=== PATIENT | female | born 1985 | race Caucasian/White ===

== ENCOUNTER 2016-06-27 01:57 | Emergency (ER) | payer SELFPAY ==
[~2016-06-27] VITALS: Ht 157.5 cm; Wt 99.0 kg
[~2016-06-27 01:57] MED LIST: BACTDS PO; CEPH-443 PO; CLIN-73 PO; FLORANEX PO; HYDR-3498 PO; HYDR-762 PO; IBUP800T25 PO; INSU100I13 SC; METF500T4 PO; METH500T PO; NAPR-260 PO
[2016-06-27 02:15] VITALS: Ht 157.5 cm; Wt 99.0 kg
[2016-06-27] MEDS ORDERED: SOD CHLORIDE 0.9% 1,000 ML IV STA (06:08)
[2016-06-27 06:25] LABS: MODE ROOM AIR; MetHgb Venous 0.3 %; Sample Type Blood venous; Venous COHb 0.4 %; Venous Fraction OxyHgb 68.5 %; Venous Total Hemglobin 14.7 g/dl
--- NOTE | 2016-06-27 06:25 | ERA ---
ER Documentation Chief Complaint Date/Time DATE: 06/27/16 TIME: 06:23 Chief Complaint Hyperglycemia with hospital referral HPI 31-year-old female who describes a history of insulin-dependent diabetes but off of insulin for greater than 1 year secondary to insurance issues. The patient states that she has had several weeks of polydipsia polyuria polyphagia with associated gradual onset headache. She went to an urgent care with a glucose in the 400s who sent her to the emergency room. She denies any fevers, chills, chest pain, no shortness of breath no dysuria. ROS All systems reviewed and are negative except as per history of present illness. Medications Home Meds Active Scripts Syring-Needl,Disp,Insul,0.3 ml (Insulin Syringe) 1 Each Disp.syrin, 1 BOX MC, #1 Prov:KANA EMERY MD 06/27/16 Blood-Glucose Meter (Blood Glucose Monitor) 1 Each Kit, 1 EACH MC, #1 Prov:KANA EMERY MD 06/27/16 Blood Glucose Strips-Dispmeter ([employer] Blood Glucose System) 1 Each Kit, 1 EACH MC, #1 Prov:KANA EMERY MD 06/27/16 Insulin Lispro (Humalog) 100 Unit/1 Ml Cartridge, 6 UNIT SQ TID for with meals for 30 Days Prov:KANA EMERY MD 06/27/16 Insulin NPH Human Isophane (Humulin N) 100 Unit/1 Ml Vial, 14 UNIT SQ BID for 30 Days, VIAL Prov:KANA EMERY MD 06/27/16 Metformin* (Glucophage*) 500 Mg Tab, 500 MG PO BID, #20 TAB Prov:JULIOCESAR ALVARENGA NP 01/18/16 Sulfamethoxazole-Trimethoprim* (Bactrim* DS) 800-160 Mg Tab, 1 TAB PO BID for 7 Days, TAB Prov:JULIOCESAR ALVARENGA OTC CLERK 01/18/16 Cephalexin* (Keflex*) 500 Mg Capsule, 500 MG PO QID for 7 Days, CAP Prov:JULIOCESAR ALVARENGA NP 01/18/16 Ibuprofen* (Motrin*) 800 Mg Tab, 800 MG PO Q6H Y for PAIN AND OR ELEVATED TEMP, #30 TAB Prov:JULIOCESAR ALVARENGA NP 01/18/16 Ibuprofen* (Motrin*) 800 Mg Tab, 800 MG PO Q6, #30 TAB take with food Prov:MARKIE HERNANDEZ PA-C 12/19/15 Cephalexin* (Keflex*) 500 Mg Capsule, 500 MG PO QID for 7 Days, CAP Prov:MARKIE HERNANDEZ PA-C 12/19/15 Sulfamethoxazole-Trimethoprim* (Bactrim* DS) 800-160 Mg Tab, 1 TAB PO BID for 7 Days, TAB Prov:MARKIE HERNANDEZ PA-C 12/19/15 Methocarbamol* (Robaxin*) 500 Mg Tab, 500 MG PO Q8, #14 TAB Prov:OLYMORTEZA DO 07/12/15 Hydrocodone Bit-Acetaminophen* ([place]*) 5-325 Mg Tab, 1 TAB PO Q6 Y for PAIN, # 10 TAB Prov:MORTEZA ALDRIDGE DO 07/12/15 Naproxen* (Naprosyn*) 500 Mg Tablet, 500 MG PO BID Y for PAIN AND/OR INFLAMMATION, #30 TAB Prov:MORTEZA ALDRIDGE DO 07/12/15 Clindamycin Hcl* (Clindamycin Hcl*) 300 Mg Capsule, 300 MG PO TID for 10 Days, CAP Prov:MORTEZA ALDRIDGE DO 07/12/15 Sulfamethoxazole-Trimethoprim* (Bactrim* DS) 800-160 Mg Tab, 1 TAB PO BID for 7 Days, TAB Prov:ANGEL SAMANO PA-C 07/10/15 Cephalexin* (Keflex*) 500 Mg Capsule, 500 MG PO QID for 7 Days, CAP Prov:ANGEL SAMANO PA-C 07/10/15 Hydrocodone Bit-Acetaminophen* ([place]*) 5-325 Mg Tab, 1 TAB PO Q6 Y for PAIN, # 14 TAB Prov:TRUMAN HERZOG MD 05/17/15 Cephalexin* (Keflex*) 500 Mg Capsule, 500 MG PO QID for 10 Days, CAP Prov:TRUMAN HERZOG MD 05/17/15 Sulfamethoxazole-Trimethoprim* (Bactrim* DS) 800-160 Mg Tab, 1 TAB PO BID for 10 Days, TAB Prov:TRUMAN HERZOG MD 05/17/15 Insuln Asp Prt/Insulin Aspart* (Novolog Mix 70-30 Flexpen*) 100 Unit/1 Ml Inj, 16 UNIT SC AC BREAKFAST DINNER for 30 Days Prov:OLEKSANDR CHRISTIANSEN 04/05/15 Hydrocodone Bit-Acetaminophen* ([place]*) 10-325 Mg Tablet, 1 TAB PO Q4H Y for PAIN, #30 TAB Prov:IMANI CHRISTIANSENNELL 04/05/15 Lactobacillus Acidoph/Bulgaricus* (Floranex*) 1 Tab Chew, 1 TAB PO TID for 14 Days Prov:IMANI CHRISTIANSENNELL 04/05/15 Clindamycin Hcl* (Clindamycin Hcl*) 300 Mg Capsule, 300 MG PO Q8 for 14 Days, CAP Prov:OLEKSANDR CHRISTIANSEN 04/05/15 Allergies Allergies: Coded Allergies: No Known Allergy (Unverified , 04/03/15) PMhx/Soc History of Surgery: Yes (3x ) Anesthesia Reaction: No Hx Neurological Disorder: No Hx Respiratory Disorders: No Hx Cardiac Disorders: No Hx Psychiatric Problems: No Hx Miscellaneous Medical Probl: Yes (dm on insulin) Hx Alcohol Use: No Hx Substance Use: No Hx Tobacco Use: No Smoking Status: Never smoker FmHx Family History: diabetes Physical Exam Vitals Vital Signs Date Time Temp Pulse Resp B/P Pulse Ox O2 Delivery O2 Flow Rate FiO2 06/27/16 02:15 97.3 89 20 123/73 97 Physical Exam General: Well developed, well nourished, no acute distress no odor of ketones Head: Normocephalic, atraumatic. Eyes: Pupils equally reactive, EOM intact ENT: Moist mucous membranes Neck: Supple, no lymphadenopathy Respiratory: Lungs clear bilaterally, no distress Cardiovascular: RRR, no murmurs, rubs, or gallops Abdominal: Soft, non-tender, non-distended, no peritoneal signs : Deferred MSK: No edema, no unilateral swelling, 5/5 strength Neurologic: Alert and oriented, moving all extremities, normal speech, no focal weakness, no cerebellar signs Skin: No rash Psych: Normal mood Result Diagram: 06/27/16 0612 06/27/16 0612 Results 24 hrs Laboratory Tests Test 06/27/16 02:59 06/27/16 05:22 06/27/16 06:08 06/27/16 06:12 Bedside Glucose 468mg/dL Urine Bilirubin NEGATIVE Urine Clarity CLEAR Urine Color LT. YELLOW Urine Glucose >=1000% Urine Hemoglobin NEGATIVE Urine Ketones 15 Urine Leukocyte Esterase NEGATIVE Urine Nitrite NEGATIVE Urine Specific [place] 1.010 Urine Total Protein NEGATIVE Urine Urobilinogen 0.2 E.U./dL Urine pH 6.0 David Test N/A Arterial Blood Date Drawn 06/27/2016 6:15:15 AM Arterial Blood Gas Puncture Site LB Blood Gas Actual Respiration Rate 20 Blood Gas Critical Value Read Back Bebe JULIAN. Blood Gas Modality ROOM AIR Blood Gas Notified Time 06/27/2016 6:24:39 AM Blood Gas Notified Whom BL Blood Gas Specimen Source Blood venous Blood Gas Temperature 37.0C Carboxyhemoglobin 0.4% FiO2 21.0% Venous Blood Base Excess -3.0mmol/L Venous Blood HCO3 23.0mmol/L Venous Blood Methemoglobin 0.3% Venous Blood Oxygen Saturation 69.0mmHG Venous Blood Oxyhemoglobin 68.5% Venous Blood Total Hemoglobin 14.7g/dl Venous Blood pCO2 (Temp Corrected) 44.8mmHG Venous Blood pH 7.329 Venous Blood pO2 (Temp Corrected) 38.6mmHG Anion Gap 16 Basophils # 0.010^3/ul Basophils % 0.3% Blood Urea Nitrogen 11mg/dl Calcium Level 9.5mg/dl Carbon Dioxide Level 29mmol/L Chloride Level 99mmol/L Creatinine 0.39mg/dl Eosinophils # 0.110^3/ul Eosinophils % 1.1% Glucose Level 359mg/dl Hematocrit 40.6% Hemoglobin 13.8g/dl Lymphocytes # 2.610^3/ul Lymphocytes % 27.9% Mean Corpuscular Hemoglobin 29.2pg Mean Corpuscular Hemoglobin Concent 34.0g/dl Mean Corpuscular Volume 85.8fl Mean Platelet Volume 7.8fl Monocytes # 0.510^3/ul Monocytes % 5.0% Neutrophils # 6.110^3/ul Neutrophils % 65.7% Nucleated Red Blood Cells # 0.010^3/ul Nucleated Red Blood Cells % 0.0/100WBC Platelet Count 16654^3/UL Potassium Level 4.1mmol/L Red Blood Count 4.7310^6/ul Red Cell Distribution Width 12.7% Sodium Level 140mmol/L White Blood Count 9.310^3/ul Test 06/27/16 06:14 06/27/16 07:27 Bedside Glucose 338mg/dL 305mg/dL Current Medications Medications (Trade) Dose Ordered Sig/Nadine Route PRN Reason Start Time Stop Time Status Last Admin Dose Admin Sodium Chloride (NS) 1,000 ml @ 1,000 mls/hr Q1H STAT IV 06/27/16 06:08 06/27/16 07:07 DC 06/27/16 06:43 Insulin Detemir (Levemir) 15 unit ONCE ONCE SC 06/27/16 08:00 06/27/16 08:01 DC 06/27/16 07:59 Miscellaneous Information 1 ea NOTE XX 06/27/16 08:00 Glucose (Glutose) 15 gm Q15M PRN PO DECREASED GLUCOSE 06/27/16 08:00 Glucose (Glutose) 22.5 gm Q15M PRN PO DECREASED GLUCOSE 06/27/16 08:00 Dextrose (D50w Syringe) 25 ml Q15M PRN IV DECREASED GLUCOSE 06/27/16 08:00 Dextrose (D50w Syringe) 50 ml Q15M PRN IV DECREASED GLUCOSE 06/27/16 08:00 Glucagon (Glucagen) 1 mg Q15M PRN IM DECREASED GLUCOSE 06/27/16 08:00 Glucose (Glutose) 15 gm Q15M PRN BUCCAL DECREASED GLUCOSE 06/27/16 08:00 Procedures/MDM LAB INTERPRETATION: Ketonuria, normal bicarb, normal pH MEDICAL DECISION MAKING: The patient presents with hyperglycemia in the setting of medication noncompliance for greater than 1 year. She states that she was diagnosed with diabetes at a young age and states that she was only taking insulin however it seems unlikely that the patient is solely a insulin-dependent diabetic or type I diabetic given that she is otherwise well-appearing with greater than 1 year of no insulin. This is very possibly type 2 diabetes diagnosed at a young age. However, the patient will require laboratory testing to rule out diabetic ketoacidosis. She unfortunately cannot tell me the name of her insulin or her insulin regimen. She does not have a primary care physician. ER COURSE: The patient has hyperglycemia without evidence of diabetic ketoacidosis. She does have some small ketones in her urine and will benefit from insulin. Unfortunately the patient does not know her insulin regimen. I was able to speak to [address] of our hab[address]itation assistant Dr. García who was kind enough to discuss the case with me. She recommended providing the patient with a single dose of Levemir 15 units subcutaneous in the emergency department. She then recommended an outpatient insulin regimen. Based on the patient's presentation and weight she recommended a 24 hour total of 0.5 U/kg. She recommended 60% of daily dose of Humulin N divided twice daily and then 40% of the total dose in the form of Humalog or Humulin R 3 times daily with meals. The patient was informed of this dosing regimen. She was advised to check her glucose regularly and has been provided prescriptions for equipment. The patient was advised to stop insulin regimen if she becomes hypoglycemic, confused or feeling faint. The patient was strongly advised to follow-up with a primary care physician as soon as possible and outpatient referral to [facility] endocrinology and primary care clinics was provided. At this time the patient does not require inpatient hospitalization. I kept the patient and/or family informed of laboratory and diagnostic imaging results throughout the emergency room course. DISPOSITION PLAN: We discussed follow up with the patient's primary care doctor within 24 to 48 hours as needed. We also discussed return to the emergency room for worsening symptoms or worsening condition. Discharge Medications: Humulin N 14 units twice daily Humalog or Humulin R 6 units 3 times daily with meals Departure Diagnosis: Primary Impression: Hyperglycemia Additional Impression: Diabetes mellitus Qualified Code: E13.9 - Diabetes mellitus of other type without complication, unspecified residential insulin use status Condition: KANA Waddell MD Jun 27, 2016 06:25
[2016-06-27 07:01] LABS: BASOPHILS % 0.3 % (0.0-2.0); EOSINOPHILS # 0.1 10^3/ul (0.0-0.5); EOSINOPHILS % 1.1 % (0.0-7.0); HEMATOCRIT 40.6 % (37.0-47.0); HEMOGLOBIN 13.8 g/dl (12.0-16.0); LYMPHOCYTES # 2.6 10^3/ul (0.8-2.9); LYMPHOCYTES % 27.9 % (15.0-51.0); MEAN CORPUSCULAR HEMOGLOBIN 29.2 pg (29.0-33.0); MEAN CORPUSCULAR VOLUME 85.8 fl (82.0-101.0); MEAN PLATELET VOLUME 7.8 fl (7.4-10.4); MONOCYTE # 0.5 10^3/ul (0.3-0.9); NEUTROPHIL # 6.1 10^3/ul (1.6-7.5); NEUTROPHILS % 65.7 % (39.0-77.0); PLATELET COUNT 322 10^3/UL (140-440); POTASSIUM 4.1 mmol/L (3.5-5.1); RED BLOOD COUNT 4.73 10^6/ul (4.20-5.40); RED CELL DISTRIBUTION WIDTH 12.7 % (11.5-14.5); UNCORRECTED WBC 9.3 10^3/ul (4.8-10.8); WHITE BLOOD COUNT 9.3 10^3/ul (4.8-10.8)
[2016-06-27 07:01] LABS: ADD UMIC NO; URINE BILIRUBIN (Dip) NEGATIVE (NEGATIVE); URINE BLOOD (Dip) NEGATIVE (NEGATIVE); URINE COLOR LT. YELLOW (YELLOW); URINE GLUCOSE (Dip) >=1000 % (NEGATIVE); URINE KETONES (Dip) 15 (NEGATIVE); URINE LEUKOCYTE ESTERASE (Dip) NEGATIVE (NEGATIVE); URINE NITRITE (Dip) NEGATIVE (NEGATIVE); URINE TOTAL PROTEIN (Dip) NEGATIVE (NEGATIVE); URINE UROBILINOGEN (Dip) 0.2 E.U./dL (0.1-1.0)
[2016-06-27 07:03] LABS: CREATININE 0.39 mg/dl (0.44-1.00)
[2016-06-27 07:04] LABS: CALCIUM 9.5 mg/dl (8.4-10.2)
[2016-06-27 07:24] LABS: CONDITION 1
[2016-06-27] MEDS ORDERED: INSU100C SQ (07:46)
[2016-06-27] MEDS ORDERED: NPH,100V SQ (07:46)
[2016-06-27] MEDS ORDERED: [UNRECOGNIZED DRUG - CODE] MC (07:49)
[2016-06-27] MEDS ORDERED: BLOO-175 MC (07:49)
[2016-06-27] MEDS ORDERED: BLOO-432 MC (07:49)
[2016-06-27] MEDS ORDERED: DEXTROSE 50% 50 ML SYRINGE IV PRN ×2 (08:00)
[2016-06-27] MEDS ORDERED: GLUCOSE GEL 15 GRAM TUBE BUCCAL PRN (08:00)
[2016-06-27] MEDS ORDERED: GLUCOSE GEL 15 GRAM TUBE PO PRN ×2 (08:00)
[2016-06-27] MEDS ORDERED: GLUCAGON 1 MG INJ IM PRN (08:00)
[2016-06-27] MEDS ORDERED: INSULIN DETEMIR [LEVEMIR] 3ML CART SC ONE (08:00)
[2016-06-27 08:08] VITALS: BP 110/62; PULSE 83; RESP 17; TEMP 97.7
== END 2016-06-27 08:26 | disposition home or self-care (01) ==
LOC: E/R 01:57
DX: E11.65 Type 2 diabetes mellitus with hyperglycemia (principal); Z79.4 Long term (current) use of insulin; Z79.84 Long term (current) use of oral hypoglycemic drugs
CPT/HCPCS: 36415; 80048; 81003; 82803; 82962; 85025; 96372; 99284; J1815; J7030

== ENCOUNTER 2017-02-02 19:57 | Emergency (ER) | payer MEDICAID ==
[~2017-02-02] VITALS: Ht 160 cm; Wt 97.5 kg
[~2017-02-02 19:57] MED LIST changes: +BLOO-175 MC; +BLOO-432 MC; +INSU100C SQ; +NPH,100V SQ; +[UNRECOGNIZED DRUG - CODE] MC
[2017-02-02 20:22] VITALS: Ht 160 cm; Wt 97.5 kg
[2017-02-02] MEDS ORDERED: SOD CHLORIDE 0.9% 2,000 ML IV STA (23:00)
[2017-02-02 23:22] LABS: BASOPHILS % 0.2 % (0.0-2.0); EOSINOPHILS # 0.1 10^3/ul (0.0-0.5); EOSINOPHILS % 1.2 % (0.0-7.0); HEMATOCRIT 38.5 % (37.0-47.0); HEMOGLOBIN 13.1 g/dl (12.0-16.0); LYMPHOCYTES # 2.8 10^3/ul (0.8-2.9); LYMPHOCYTES % 31.2 % (15.0-51.0); MEAN CORPUSCULAR HEMOGLOBIN 29.5 pg (29.0-33.0); MEAN CORPUSCULAR VOLUME 86.7 fl (82.0-101.0); MEAN PLATELET VOLUME 8.9 fl (7.4-10.4); MONOCYTE # 0.5 10^3/ul (0.3-0.9); MONOCYTES % 5.3 % (0.0-11.0); NEUTROPHIL # 5.6 10^3/ul (1.6-7.5); NEUTROPHILS % 61.7 % (39.0-77.0); PLATELET COUNT 350 10^3/UL (140-415); RED BLOOD COUNT 4.44 10^6/ul (4.20-5.40); RED CELL DISTRIBUTION WIDTH 12.5 % (11.5-14.5); WHITE BLOOD COUNT 9.1 10^3/ul (4.8-10.8)
[2017-02-02 23:27] LABS: ADD UMIC NO; UR ASCORBIC ACID NEGATIVE (NEGATIVE); UR BILIRUBIN (Dip) NEGATIVE (NEGATIVE); UR BLOOD (Dip) NEGATIVE (NEGATIVE); UR CLARITY CLEAR (CLEAR); UR COLOR STRAW (YELLOW); UR GLUCOSE (Dip) 3+ mg/dL (NEGATIVE); UR KETONES (Dip) NEGATIVE (NEGATIVE); UR LEUKOCYTE ESTERASE (Dip) NEGATIVE Leu/ul (NEGATIVE); UR NITRITE (Dip) NEGATIVE (NEGATIVE); UR SPECIFIC GRAVITY (Dip) 1.032 (1.003-1.030); UR TOTAL PROTEIN (Dip) NEGATIVE (NEGATIVE); UR UROBILINOGEN (Dip) NEGATIVE (NEGATIVE)
[2017-02-02 23:43] LABS: ALBUMIN 3.6 g/dl (3.3-4.9); ALBUMIN/GLOBULIN RATIO 0.97; BILIRUBIN,INDIRECT 0.1 mg/dl (0-1.1); BILIRUBIN,TOTAL 0.1 mg/dl (0.2-1.3); CALCIUM 9.2 mg/dl (8.4-10.2); CREATININE 0.51 mg/dl (0.44-1.00); POTASSIUM 4.3 mmol/L (3.5-5.1); TOTAL PROTEIN 7.3 g/dl (6.1-8.1)
[2017-02-03] MEDS ORDERED: INSULIN LISPRO 100 UNIT/ML VIAL SC STA (00:06)
[2017-02-03] MEDS ORDERED: NPH,100V SQ (00:10)
[2017-02-03] MEDS ORDERED: INSU100V3 IJ (00:10)
--- NOTE | 2017-02-03 00:13 | RADRPT ---
PROCEDURE: US Pelvis. CLINICAL INDICATION: Pelvic pain following a fall. Positive TECHNIQUE: Multiple sonographic images of the pelvis were obtained utilizing a transabdominal and endovaginal technique. The images were reviewed on a PACS workstation. COMPARISON: None available FINDINGS: Uterus: Normal in size, contour and echogenicity with no evidence for myometrial masses. Cervix: No abnormalities of significance are seen. Endometrium: Anechoic structure possibly a gestational sac measures 3.8 mm. No yolk sac or po le is demonstrated. Right ovary / adnexa: Normal in size estimated at 2.9 x 1.9 x 1.9 cm. No evidence for masses, norm al blood flow on Doppler interrogation. Left ovary/adnexa: Normal in size estimated at 3.1 x 2.1 x 1.9 cm. No evidence for solid masses, no rmal blood flow on Doppler interrogation. Cul-de-sac: No evidence of free fluid. RPTAT:HJJR IMPRESSION: 1. Tiny anechoic structure within the endometrial cavity possibly a gestational sac which correlates with an age of 4 weeks 6 days. As viability is uncertain, correlation with serial serum beta HCG levels and follow-up pelvic ultras ound is recommended. 2. Otherwise unremarkable examination with sonographically normal myometrium, ovaries and adnexa. Physician Julian Date Time Electronically viewed and signed by Physician Julian on 02/03/2017 00:13 /
--- NOTE | 2017-02-03 00:14 | ERD ---
ER Documentation Chief Complaint Date/Time DATE: 02/03/17 TIME: 00:11 Chief Complaint back pain, fell yesterday, no cramps, no bleeding, pt preg 4 weeks HPI This 31-year-old female slipped and fell backwards Onto her lower back or buttocks yesterday. She has low back pain and lower abdominal pain which started today. History is significant for approximately 6 weeks by dates. Her primary doctor identified a 4 week by ultrasound this week. OB appointment is pending. History is also significant for insulin dependent diabetes and she has been out of her insulin for 2 weeks. She denies any vomiting, abdominal pain, chest pain or headache. She denies any vaginal bleeding. She is not checking her blood sugar. ROS All systems reviewed and are negative except as per history of present illness. Medications Home Meds Active Scripts Insulin Regular, Human (Humulin R) 100 Unit/1 Ml Vial, 20 UNIT IJ BID for 30 Days, VIAL Dose as directed. 20 units every morning and 15 units nightly. Prov:TRUMAN HERZOG MD 02/03/17 Insulin NPH Human Isophane (Humulin N) 100 Unit/1 Ml Vial, 10 UNIT SQ BID for 30 Days, VIAL Dose as directed 20 units every morning and 5 units nightly Prov:TRUMAN HERZOG MD 02/03/17 Syring-Needl,Disp,Insul,0.3 ml (Insulin Syringe) 1 Each Disp.syrin, 1 BOX , #1 Prov:KANA EMERY MD 06/27/16 Blood-Glucose Meter (Blood Glucose Monitor) 1 Each Kit, 1 EACH , #1 Prov:KANA EMERY MD 06/27/16 Blood Glucose Strips-Dispmeter ([employer] Blood Glucose System) 1 Each Kit, 1 EACH , #1 Prov:KANA EMERY MD 06/27/16 Insulin Lispro (Humalog) 100 Unit/1 Ml Cartridge, 6 UNIT SQ TID for with meals for 30 Days Prov:KANA EMERY MD 06/27/16 Insulin NPH Human Isophane (Humulin N) 100 Unit/1 Ml Vial, 14 UNIT SQ BID for 30 Days, VIAL Prov:KANA EMERY MD 2/19/17 Metformin* (Glucophage*) 500 Mg Tab, 500 MG PO BID, #20 TAB Prov:JULIOCESAR ALVARENGA. ATOMIC SPECTROSCOPIST 01/18/16 Sulfamethoxazole-Trimethoprim* (Bactrim* DS) 800-160 Mg Tab, 1 TAB PO BID for 7 Days, TAB Prov:JULIOCESAR ALVARENGA. ATOMIC SPECTROSCOPIST 01/18/16 Cephalexin* (Keflex*) 500 Mg Capsule, 500 MG PO QID for 7 Days, CAP Prov:JULIOCESAR ALVARENGA. ATOMIC SPECTROSCOPIST 01/18/16 Ibuprofen* (Motrin*) 800 Mg Tab, 800 MG PO Q6H Y for PAIN AND OR ELEVATED TEMP, #30 TAB Prov:JULIOCESAR ALVARENGA. ATOMIC SPECTROSCOPIST 01/18/16 Ibuprofen* (Motrin*) 800 Mg Tab, 800 MG PO Q6, #30 TAB take with food Prov:MARKIE HERNANDEZ PA-C 12/19/15 Cephalexin* (Keflex*) 500 Mg Capsule, 500 MG PO QID for 7 Days, CAP Prov:MARKIE HERNANDEZ PA-C 12/19/15 Sulfamethoxazole-Trimethoprim* (Bactrim* DS) 800-160 Mg Tab, 1 TAB PO BID for 7 Days, TAB Prov:MARKIE HERNANDEZ-C 12/19/15 Methocarbamol* (Robaxin*) 500 Mg Tab, 500 MG PO Q8, #14 TAB Prov:MORTEZA ALDRIDGE DO 07/12/15 Hydrocodone Bit-Acetaminophen* ([place]*) 5-325 Mg Tab, 1 TAB PO Q6 Y for PAIN, # 10 TAB Prov:MORTEZA ALDRIDGE DO 07/12/15 Naproxen* (Naprosyn*) 500 Mg Tablet, 500 MG PO BID Y for PAIN AND/OR INFLAMMATION, #30 TAB Prov:MORTEZA ALDRIDGE DO 07/12/15 Clindamycin Hcl* (Clindamycin Hcl*) 300 Mg Capsule, 300 MG PO TID for 10 Days, CAP Prov:MORTEZA ALDRIDGE DO 07/12/15 Sulfamethoxazole-Trimethoprim* (Bactrim* DS) 800-160 Mg Tab, 1 TAB PO BID for 7 Days, TAB Prov:ANGEL SAMANO PA-C 07/10/15 Cephalexin* (Keflex*) 500 Mg Capsule, 500 MG PO QID for 7 Days, CAP Prov:ANGEL SAMANO PA-C 07/10/15 Hydrocodone Bit-Acetaminophen* ([place]*) 5-325 Mg Tab, 1 TAB PO Q6 Y for PAIN, # 14 TAB Prov:TRUMAN HERZOG MD 05/17/15 Cephalexin* (Keflex*) 500 Mg Capsule, 500 MG PO QID for 10 Days, CAP Prov:TRUMAN HERZOG MD 05/17/15 Sulfamethoxazole-Trimethoprim* (Bactrim* DS) 800-160 Mg Tab, 1 TAB PO BID for 10 Days, TAB Prov:TRUMAN HERZOG MD 05/17/15 Insuln Asp Prt/Insulin Aspart* (Novolog Mix 70-30 Flexpen*) 100 Unit/1 Ml Inj, 16 UNIT SC AC BREAKFAST DINNER for 30 Days Prov:OLEKSANDR CHRISTIANSEN 04/05/15 Hydrocodone Bit-Acetaminophen* ([place]*) 10-325 Mg Tablet, 1 TAB PO Q4H Y for PAIN, #30 TAB Prov:OLEKSANDR CHRISTIANSEN 04/05/15 Lactobacillus Acidoph/Bulgaricus* (Floranex*) 1 Tab Chew, 1 TAB PO TID for 14 Days Prov:OLEKSANDR CHRISTIANSEN 04/05/15 Clindamycin Hcl* (Clindamycin Hcl*) 300 Mg Capsule, 300 MG PO Q8 for 14 Days, CAP Prov:OLEKSANDR CHRISTIANSEN 04/05/15 Allergies Allergies: Coded Allergies: No Known Allergy (Unverified , 04/03/15) PMhx/Soc History of Surgery: Yes (3x ) Anesthesia Reaction: No Hx Neurological Disorder: No Hx Respiratory Disorders: No Hx Cardiac Disorders: No Hx Psychiatric Problems: No Hx Miscellaneous Medical Probl: Yes (dm on insulin) Hx Alcohol Use: No Hx Substance Use: No Hx Tobacco Use: No Smoking Status: Never smoker Physical Exam Vitals Vital Signs Date Time Temp Pulse Resp B/P Pulse Ox O2 Delivery O2 Flow Rate FiO2 02/02/17 20:22 99.2 100 20 129/72 99 Physical Exam Const: [] Letter, [id number], obese. Head: Atraumatic Eyes: Normal Conjunctiva ENT: Normal External Ears, Nose and Mouth. Neck: Full range of motion..~ No meningismus. Resp: Clear to auscultation bilaterally Cardio: Regular rate and rhythm, no murmurs Abd: Soft, non tender, non distended. Normal bowel sounds Skin: No petechiae or rashes Back: No midline or flank tenderness Ext: No cyanosis, or edema Neur: Awake and alert Psych: Normal Mood and Affect Result Diagram: 02/02/170 02/02/170 Results 24 hrs Laboratory Tests Test 02/02/17 22:58 02/02/17 23:10 Bedside Glucose 400mg/dL White Blood Count 9.110^3/ul Red Blood Count 4.4410^6/ul Hemoglobin 13.1g/dl Hematocrit 38.5% Mean Corpuscular Volume 86.7fl Mean Corpuscular Hemoglobin 29.5pg Mean Corpuscular Hemoglobin Concent 34.0g/dl Red Cell Distribution Width 12.5% Platelet Count 44856^3/UL Mean Platelet Volume 8.9fl Neutrophils % 61.7% Lymphocytes % 31.2% Monocytes % 5.3% Eosinophils % 1.2% Basophils % 0.2% Nucleated Red Blood Cells % 0.0/100WBC Neutrophils # 5.610^3/ul Lymphocytes # 2.810^3/ul Monocytes # 0.510^3/ul Eosinophils # 0.110^3/ul Basophils # 0.010^3/ul Nucleated Red Blood Cells # 0.010^3/ul Urine Color STRAW Urine Clarity CLEAR Urine pH 6.0 Urine Specific [place] 1.032 Urine Ketones NEGATIVEmg/dL Urine Nitrite NEGATIVEmg/dL Urine Bilirubin NEGATIVEmg/dL Urine Urobilinogen NEGATIVEmg/dL Urine Leukocyte Esterase NEGATIVELeu/ul Urine Hemoglobin NEGATIVEmg/dL Urine Glucose 3+mg/dL Urine Total Protein NEGATIVEmg/dl Sodium Level 131mmol/L Potassium Level 4.3mmol/L Chloride Level 100mmol/L Carbon Dioxide Level 25mmol/L Anion Gap 10 Blood Urea Nitrogen 11mg/dl Creatinine 0.51mg/dl Glucose Level 485mg/dl Calcium Level 9.2mg/dl Total Bilirubin 0.1mg/dl Direct Bilirubin 0.00mg/dl Indirect Bilirubin 0.1mg/dl Aspartate Amino Transf (AST/SGOT) 15IU/L Alanine Aminotransferase (ALT/SGPT) 28IU/L Alkaline Phosphatase 120IU/L Total Protein 7.3g/dl Albumin 3.6g/dl Globulin 3.70g/dl Albumin/Globulin Ratio 0.97 Lipase 161U/L Current Medications Medications (Trade) Dose Ordered Sig/Nadine Route PRN Reason Start Time Stop Time Status Last Admin Dose Admin Sodium Chloride (NS) 2,000 ml @ 1,000 mls/hr Q2H STAT IV 02/02/17 23:00 02/03/17 00:59 02/02/17 23:14 Insulin Human Lispro (Humalog) 10 unit ONCE STAT SC 02/03/17 00:06 02/03/17 00:07 DC Procedures/MDM Accu-Chek was 400. EDC is normal. CMP shows sodium 131 and glucose of 45. Patient was given 2 L normal saline and IV and Humalog 10 units subcutaneously. Pelvic ultrasound shows a 4 week gestational sac without identifiable adnexal masses and no visible yolk sac or pole. Quantitative hCG is pending and signed out to nurse practitioner cuisia. Patient shows no signs of acute abdomen or abdominal pain. She has no fever or active vomiting. Urine shows no ketones, only glucose. Patient does not have signs or symptoms of ketoacidosis. Patient will be signed out pending normalization of blood sugar. Aftercare plan is to be resumed on patient's insulin and OB follow-up and close blood sugar monitoring. Quantitative hCG pending. Patient shows gestational sac of early . Recommending 2 day recheck FOR quantitative hCG rechecked and viability of as well. Differential includes ectopic or ectopic but suspicion is low. Follow- up advised DIRECTED Departure Diagnosis: Primary Impression: Abdominal pain Additional Impressions: Back pain Hyperglycemia Condition: Stable Patient Instructions: Abdominal Pain, Hyperglycemia (High Blood Sugar), Abdominal Pain, Early Additional Instructions: Start insulin as previously prescribed. Recommend 2 day recheck for hormone level to determine viability of . Follow-up with OB as scheduled. Recheck otherwise for new or worsening symptoms. TRUMAN HERZOG MD Feb 03, 2017 00:14
--- NOTE | 2017-02-03 02:33 | EN ---
Date/Time of Note Date/Time of Note DATE: 02/03/17 TIME: 02:30 ER Progress Note This 31-year-old female 4 weeks female that presented here in the emergency department with hyperglycemia and back pain and abdominal pain, patient was initially seen by Dr. Lemuel Cruz, patient was signed out to me with pending beta-hCG quantitative result and pending decrease of blood sugar. Upon reassessing the patient, patient's pain is controlled, blood sugar is lower at 232 mg per DL, I consulted Dr. Gutierrez, my attending physician and Dr. Germain, OB specialist, agrees with Dr. Cruz's plan of discharging patient with insulin with strict return precautions for any worsening symptoms, patient was advised to return in 2 days for recheck a beta hCG quantitative and ensuring that the patient's is progressing well. At this time, no symptoms of any ectopic . Patient's beta-hCG is appropriate for this early. I discussed this case with Dr. Germain, agrees with plan with 2 day follow-up for recheck. Patient was advised to see word processing specialist for management of her diabetes. Patient is stable at this time, will be discharged according to Dr Cruz's instructions. ANITA TREJO NP Feb 03, 2017 02:33
[2017-02-03 03:20] VITALS: BP 109/69; PULSE 78; RESP 16
== END 2017-02-03 03:22 | disposition home or self-care (01) ==
LOC: FTE 19:57
DX: O26.891 Other specified pregnancy related conditions, first trimester (principal); O99.281 Endocrine, nutritional and metabolic diseases complicating pregnancy, first trimester; E11.65 Type 2 diabetes mellitus with hyperglycemia; M54.5 Low back pain; R10.30 Lower abdominal pain, unspecified; R10.2 Pelvic and perineal pain; Z3A.01 Less than 8 weeks gestation of pregnancy; Z79.4 Long term (current) use of insulin; Z79.84 Long term (current) use of oral hypoglycemic drugs
CPT/HCPCS: 36415; 76801; 76817; 80053; 81003; 82962; 83690; 84702; 85025; 96372; J1815; J7030; Z7502